=== PATIENT | female | born 1990 | race Caucasian/White ===

== ENCOUNTER 2024-06-29 16:06 | Emergency (ER) | payer SELFPAY ==
[~2024-06-29] VITALS: Ht 160 cm; Wt 84.8 kg
[2024-06-29] MEDS: ondanSETRON 4MG INJ IVP ONE (16:29)
[2024-06-29] MEDS: PANTOPrazole 40 MG/VIAL IVP ONE (16:29)
[2024-06-29] MEDS: LACTATED RINGERS 1000ML 1,000 ML IV ONE (16:30)
--- NOTE | 2024-06-29 16:37 | EKG ---
[facility] Test Date: 2024-06-29 Test Time: 16:34:17 Pat Name: ANSON KERR Department: ED Room: Gender: F [employer]: [facility] : 1990 Requested By: TYESHA HARGROVE Order Number: [id number] Reading MD: Juvencio Wellington Measurements Intervals [place] Rate: 76 P: 33 TX: 144 QRS: 14 QRSD: 100 T: 4 QT: 377 QTc: 424 Interpretive Statements Sinus rhythm No previous ECG available for comparison Electronically Signed On 06-30-2024 13:38:08 CDT by Juvencio Wellington Please click the below link to view image of tracing.
[2024-06-29 16:38] LABS: BASOPHILS # (AUTO) 0.02 K/uL (0.00-0.20); BASOPHILS % (AUTO) 0.3 % (0.0-5.0); EOSINOPHILS # (AUTO) 0.08 K/uL (0.00-0.70); EOSINOPHILS % (AUTO) 1.2 % (0.0-8.0); HEMATOCRIT 37.5 % (36-48); IMMATURE GRANULOCYTE ABSOLUTE 0.02 K/uL (0-1); LYMPHOCYTES # (AUTO) 1.8 K/uL (1.0-4.8); LYMPHOCYTES % (AUTO) 27.2 % (21.0-51.0); MEAN CORPUSCULAR HEMOGLOBIN 30.6 pg (27.0-33.0); MEAN CORPUSCULAR HGB CONC 32.3 g/dL (32.0-36.0); MEAN CORPUSCULAR VOLUME 94.7 fL (79-99); MONOCYTES # (AUTO) 0.4 K/uL (0.1-1.0); MONOCYTES % (AUTO) 5.2 % (3.0-13.0); NEUTROPHILS # (AUTO) 4.4 K/uL (1.8-7.7); NEUTROPHILS % (AUTO) 65.8 % (40.0-77.0); PLATELET COUNT (AUTO) 257 K/uL (130-400); RED BLOOD CELL COUNT(AUTO) 3.96 MIL/uL (4.00-5.50); RED CELL DISTRIBUTION WIDTH 12.6 % (11.0-15.5); WHITE BLOOD COUNT (AUTO) 6.7 K/uL (4.8-10.8)
[2024-06-29 17:12] LABS: CREATININE 0.6 mg/dL (0.5-1.0); POTASSIUM 3.7 mmol/L (3.5-5.1)
[2024-06-29 17:38] LABS: BILIRUBIN,TOTAL 0.3 mg/dL (0.2-1.0)
[2024-06-29 17:39] LABS: ALBUMIN 3.8 g/dL (3.5-5.0); TOTAL PROTEIN, SERUM 7.3 g/dL (6.0-8.3)
--- NOTE | 2024-06-29 17:54 | ERN ---
General Chief Complaint: Abdominal Pain Stated Complaint: LUQ. LLQ PAIN X 2 MONTHS Time Seen by MD: 16:08 Source: patient History of Present Illness Initial Comments PATIENT IS A 33-YEAR-OLD FEMALE COMING IN TO BE EVALUATED FOR LEFT FLANK PAIN. PATIENT STATES THAT THIS HAS BEEN ONGOING FOR A COUPLE OF DAYS AND SHE WAS SEEN AT ANOTHER PLACED DISCHARGE STATES THE PAIN IS STILL PRESENT. SHE STATES HE WAS HERE FOR FURTHER EVALUATION NO FEVER NO CHILLS. SHE ALSO STATES THAT THE PAIN IN HIS SHE WAS IN THE LEFT FLANK Allergies: Coded Allergies: No Known Allergies (Unverified Allergy, Unknown, 06/29/24) Past Medical History Past Medical History: No Pertinent History Medical History Other: RT OVARIAN CYST Past Surgical History: Female( History) LMP: Jun 21, 2024 ROS Dictation CONSTITUTIONAL: NO CHILLS, NO FEVER, NO WEAKNESS, NO DIAPHORESIS, NO MALAISE. HEAD/FACE: NO SIGNS OF TRAUMA. EENT: NO EYE PAIN, NO BLURRED VISION, NO TEARING, NO DOUBLE VISION, NO EAR PAIN, NO EAR DISCHARGE, NO NOSE PAIN, NO NASAL CONGESTION, NO THROAT PAIN, NO THROAT SWELLING, NO MOUTH PAIN. RESPIRATORY: NO COUGH, NO ORTHOPNEA, NO SOB, NO STRIDOR, NO WHEEZING. CARDIOVASCULAR: NO CHEST PAIN, NO EDEMA, NO PALPITATIONS, NO SYNCOPE. GASTROINTESTINAL/ABDOMINAL: ABDOMINAL PAIN, NO CONSTIPATION, NO DIARRHEA, NO NAUSEA, NO VOMITING. GENITOURINARY: NO ABNORMAL DISCHARGE, NO DYSURIA, NO FREQUENT URINATION, NO HEMATURIA. NO COMPLAINTS OF PAIN IN THE GENITALS. MUSCULOSKELETAL: NO BACK PAIN, NO GOUT, NO JOINT PAIN, NO JOINT SWELLING, NO MUSCLE PAIN, NO MUSCLE STIFFNESS, NO NECK PAIN. INTEGUMENTARY: NO CHANGE IN COLOR, NO CHANGE IN HAIR/NAILS, NO DRYNESS, NO LESION, NO LUMPS, NO RASH. NEUROLOGICAL/PSYCH: NO ANXIETY, NOT DEPRESSED, NO EMOTIONAL PROBLEM, NO HEADACHE, NO NUMBNESS, NO PRE-EXISTING DEFICIT, NO HISTORY OF SEIZURES, NO TREMORS, NO WEAKNESS. HEMATOLOGIC/LYMPHATIC: NOT ANEMIC, NO HISTORY OF BLOOD CLOTS, NO APPARENT BLEEDING, NO BRUISING, GLANDS NOT SWOLLEN. ALL SYSTEMS NEGATIVE, EXCEPT NOTED. Physical Exam Physical Exam Dictation VITAL SIGNS: REVIEWED. GENERAL APPEARANCE: ALERT, ORIENTED X3, NO ACUTE DISTRESS, OBESE. HEAD AND FACE: NON-TRAUMATIC. EYES: PERRL, PINK CONJUNCTIVAS, EYELID NO TRAUMA, ANTERIOR CHAMBER CLEAR. EARS: PINNAS INTACT AND NO SIGNS OF TRAUMA OR ERYTHEMA. EAR CANALS CLEAR AND NO DISCHARGE. TMS NO ERYTHEMA. NOSE: NO DISCHARGE, NO BLEEDING. OROPHARYNX: MOUTH NORMAL, TEETH NO CARIES, TONGUE PINK. PHARYNX CLEAR, NO ERYTHEMA. TONSILS NO EXUDATES, NO ABSCESSES NOTED. MUCOUS MEMBRANE MOIST. NECK: SUPPLE, NON-TENDER, NO THYROMEGALY, NO MASSES, NO JVD, NO BRUITS. BREAST: DEFERRED. CHEST: NO TENDERNESS, NO CREPITUS, NO PARADOXICAL MOVEMENT, NO RETRACTIONS. LUNGS: CLEAR, WELL-VENTILATED, SYMMETRIC, NO RALES, NO WHEEZING, NO RHONCHI, NO STRIDOR, GOOD BREATH SOUNDS BILATERALLY. HEART: REGULAR RATE, REGULAR RHYTHM, NO MURMUR, NO GALLOPS. VASCULAR: NO PERIPHERAL EDEMA. ABDOMEN: SOFT, POSITIVE BOWEL SOUNDS, NONDISTENDED, NO GUARDING, LEFT FLANK TENDERNESS, NO REBOUND, NO MASSES NO HEPATOMEGALY, NO SPLENOMEGALY, NO AGUILAR'S SIGN, NO HERNIAS. RECTAL: DEFERRED. GENITAL: DEFERRED. NEUROLOGICAL: NORMAL SPEECH, GROSS MOTOR FUNCTION INTACT, GROSS SENSORY FUNCTION INTACT. MUSCULOSKELETAL: NECK NONTENDER, FULL RANGE OF MOTION, BACK NONTENDER, FULL RANGE OF MOTION. EXTREMITIES: NONTENDER, FULL RANGE OF MOTION. SKIN: COLOR PINK, DRY, NO TURGOR, NO RASH, NO LACERATIONS, NO ABRASIONS, NO CONTUSIONS. LYMPHATICS: DEFERRED. Results Laboratory and Microbiology Lab and Micro Result Laboratory Tests Test 06/29/24 16:28 06/29/24 17:34 White Blood Count 6.7 K/uL (4.8-10.8) Red Blood Count 3.96 MIL/uL (4.00-5.50) L Hemoglobin 12.1 g/dL (12.0-16.0) Hematocrit 37.5 % (36-48) Mean Corpuscular Volume 94.7 fL (79-99) Mean Corpuscular Hemoglobin 30.6 pg (27.0-33.0) Mean Corpuscular Hemoglobin Concent 32.3 g/dL (32.0-36.0) Red Cell Distribution Width 12.6 % (11.0-15.5) Platelet Count 257 K/uL (130-400) Mean Platelet Volume 9.6 fL (7.5-10.5) Immature Granulocyte % (Auto) 0.3 % (0-1) Neutrophils (%) (Auto) 65.8 % (40.0-77.0) Lymphocytes (%) (Auto) 27.2 % (21.0-51.0) Monocytes (%) (Auto) 5.2 % (3.0-13.0) Eosinophils (%) (Auto) 1.2 % (0.0-8.0) Basophils (%) (Auto) 0.3 % (0.0-5.0) Neutrophils # (Auto) 4.4 K/uL (1.8-7.7) Lymphocytes # (Auto) 1.8 K/uL (1.0-4.8) Monocytes # (Auto) 0.4 K/uL (0.1-1.0) Eosinophils # (Auto) 0.08 K/uL (0.00-0.70) Basophils # (Auto) 0.02 K/uL (0.00-0.20) Absolute Immature Granulocyte (auto 0.02 K/uL (0-1) Nucleated Red Blood Cells 0.0 % (0.0-0.19) Sodium Level 138 mmol/L (136-145) Potassium Level 3.7 mmol/L (3.5-5.1) Chloride Level 101 mmol/L (101-111) Carbon Dioxide Level 29 mmol/L (21-32) Blood Urea Nitrogen 10 mg/dL (7-18) Creatinine 0.6 mg/dL (0.5-1.0) Glomerular Filtration Rate Calc 120 mL/min (>90) Random Glucose 100 mg/dL (70-105) Total Calcium 9.0 mg/dL (8.5-10.1) Total Bilirubin 0.3 mg/dL (0.2-1.0) Aspartate Amino Transf (AST/SGOT) 25 U/L (10-37) Alanine Aminotransferase (ALT/SGPT) 20 U/L (12-78) Alkaline Phosphatase 70 U/L (50-136) Total Protein 7.3 g/dL (6.0-8.3) Albumin 3.8 g/dL (3.5-5.0) Human Chorionic Gonadotropin, Quant 0 mIU/mL (0-5) Urine Color LIGHT-YELLOW (YELLOW) Urine Appearance CLOUDY (CLEAR) H Urine pH 7.0 (5.0-8.0) Urine Specific [place] 1.020 (1.001-1.031) Urine Protein NEGATIVE mg/dL (NEGATIVE) Urine Glucose (UA) NEGATIVE mg/dL (NEGATIVE) Urine Ketones NEGATIVE mg/dL (NEGATIVE) Urine Occult Blood MODERATE (NEGATIVE) H Urine Nitrate NEGATIVE (NEGATIVE) Urine Bilirubin NEGATIVE mg/dL (NEGATIVE) Urine Urobilinogen 0.2 mg/dL (0.2-1.0) Urine Leukocyte Esterase NEGATIVE Xi/uL Urine RBC 6-10 /HPF (0-1) H Urine WBC 6-10 /HPF (0-1) H Urine Squamous Epithelial Cells FEW /HPF (0-2) Urine Bacteria RARE /HPF (None Seen) Urine Other Casts 1 /LPF (None Seen) Urine Yeast FEW /HPF (None Seen) Labs Reviewed?: Yes EKG/XRAY/US/CT/MRI CT Scan Comment [address] [address] IMAGING REPORT Signed PATIENT: ANSON KERR MR#: [id number] : 1990 SEX: F AGE: 33 LOCATION: [facility] ORDER 44 STATUS: [facility] REPORT#: [id number] SERVICE 43 REASON: LEFT FLANK PAIN ORDERING PHYSICIAN: TYESHA HARGROVE MD PROCEDURE: ABD PEL WO - CT ABDOMEN/PELVIS W/O CONTRAST CT ABDOMEN WITHOUT CONTRAST. CT PELVIS WITHOUT CONTRAST. INDICATION: Left flank pain TECHNIQUE: Routine transaxial imaging using 5 mm slice thickness through the abdomen and pelvis without the administration of IV contrast. Thin slice reconstructions are also provided. Coronal and sagittal reformatted images acquired for interpretation. CT was performed with one or more of the following dose reduction techniques: Automated exposure control, adjustment of the mA and/or kV according to patient size, or use of iterative reconstruction technique. COMPARISON: None FINDINGS: ON NONCONTRAST IMAGING: ABDOMEN: Heart size is normal. Linear scarring right lung base. No abnormal renal calcifications, hydronephrosis, perinephric inflammation, or proximal hydroureter detected. The liver is normal in size and smooth in contour without biliary duct dilation. The spleen is normal in size and attenuation. The gallbladder appears normal. The pancreas appears normal without pancreatic duct dilation. The adrenal glands appear normal. No significant abdominal, retrocrural or retroperitoneal adenopathy noted. No evidence for intra-abdominal free air or organized fluid collection. No aortic aneurysmal dilation identified. PELVIS: Very trace pelvic free fluid. Massive smoothly-marginated right abdominal cyst measures extends superiorly from near the right ovary, and measures 25.5 cm in the craniocaudal dimension, 16.5 cm in AP dimension, and 21.8 cm in the transverse dimension without any associated fat or calcification. No surrounding inflammatory fat stranding. No abnormal calcifications within the urinary bladder or distal ureters. No evidence for free air or organized pelvic fluid collection. No significant pelvic adenopathy detected. Visualized small and large bowel loops appear unremarkable. Terminal ileum appears unremarkable. The appendix appears normal. Visible osseous structures are intact. IMPRESSION: 25.5 x 16.5 x 21.8 cm right abdominal cyst, perhaps of right ovarian or mesenteric origin, without any surrounding inflammatory changes. DICTATED BY: TANISHA KAISER MD DATE: 06/29/241817 ELECTRONICALLY SIGNED BY: TANISHA KAISER MD DATE: 06/29/241827 [facility] MDM: DIFFERENTIAL DIAGNOSIS: LEFT FLANK PAIN, KIDNEY STONE, DIVERTICULITIS, RIGHT OVARIAN CYST RATIONALE: TESTS CONSIDERED AND ORDERED SECONDARY TO SHARED DECISION MAKING INCLUDE: PREVIOUS OUTSIDE RECORDS REVIEWED: OLD ER VISITS. RISK OF COMPLICATION AND/OR MORBIDITY OR MORTALITY OF PATIENT MANAGEMENT: NONE MEDICATIONS-PER MEDICATION RECONCILIATION NEED FOR HOSPITALIZATION: PATIENT DOES NOT MEET CRITERIA FOR HOSPITALIZATION. NEED FOR EMERGENCY MAJOR/MINOR SURGERY: NO THERE ARE NO SOCIAL CONCERNS WITH THIS PATIENT. PRESCRIPTION DRUG MANAGEMENT PRESCRIPTIONS WILL INCLUDE SYMPTOMATIC CARE PATIENT'S PRIOR EXTERNAL MEDICAL RECORDS FROM OTHER ER VISITS WERE REVIEWED BY ME INDICATED. PRIOR TESTING AND RESULTS FROM PREVIOUS VISITS WERE REVIEWED. PRIOR TESTS WERE TAKEN INTO ACCOUNT WITH MEDICAL DECISION MAKING AND RESOURCE UTILIZATION, INDEPENDENT HISTORIAN/HISTORIANS WERE USED TO OBTAIN COMPLETE MEDICAL HISTORY. I INDEPENDENTLY INTERPRETED THE TEST THAT WERE PERFORMED, RESULTS WERE REVIEWED BY ME AND CONSIDERED FINDINGS ON RADIOLOGY IF ORDERED. MEDICAL MANAGEMENT AND EXAMINATION INTERPRETATION DISCUSSIONS WERE HAD BY ME WITH OTHER QUALIFIED HEALTHCARE PROFESSIONALS INDICATED FOR THE PATIENT'S CARE. 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 ED Course Orders Procedure Category Date Status Time Cbc With Differential LAB 06/29/24 Complete 16:17 Comprehensive LAB 06/29/24 Complete Metabolic Panel 16:17 Hcg,Quantitative LAB 06/29/24 Complete 16:17 Urinalysis Profile LAB 06/29/24 Complete 16:17 12 Lead Ekg Tracing- EKG 06/29/24 Complete Technical 16:17 Lactated Ringers PHA 06/29/24 Complete 1000ml (Lactated 16:30 Ondansetron 4mg Inj PHA 06/29/24 Complete (Zofran 4mg Inj) 16:30 Pantoprazole 40mg Inj PHA 06/29/24 Complete (Protonix 40mg Inj 16:30 Ct Abdomen/Pelvis W/O CT 06/29/24 Resulted Contrast 17:44 Culture Urine FERNANDO 06/29/24 In Process 18:27 Us Pelvic Non-Ob US 06/29/24 Resulted Limited 18:39 Morphine 4mg Syg PHA 06/29/24 Complete (Morphine 4mg Syg) 19:30 Current Medications Medications (Trade) Dose Ordered Sig/Birdie Route PRN Reason Start Time Stop Time Status Last Admin Dose Admin Lactated Ringer's 1,000 ml @ 0 mls/hr ONCE ONCE IV 06/29/24 16:30 06/29/24 16:31 DC 06/29/24 16:30 Morphine Sulfate (morPHINE 4MG SYG) 4 mg ONCE ONCE IV 06/29/24 19:30 06/29/24 19:31 DC 06/29/24 19:43 Ondansetron HCl (zoFRAN 4MG INJ) 4 mg ONCE ONCE IVP 06/29/24 16:30 06/29/24 16:31 DC 06/29/24 16:29 Pantoprazole Sodium (PROTonix 40MG INJ) 40 mg ONCE ONCE IVP 06/29/24 16:30 06/29/24 16:31 DC 06/29/24 16:29 Vital Signs Date Time Temp Pulse Resp B/P (MAP) Pulse Ox O2 Delivery O2 Flow Rate FiO2 06/29/24 20:30 98.4 70 18 130/77 99 Room Air* 0 21 06/29/24 18:00 81 18 144/72 98 Room Air* 0 21 06/29/24 16:08 98.4 82 16 164/105 99 Nasal Cannula 0 DX & DISP Disposition: Transfer Departure Impression: Primary Impression: Right ovarian cyst Condition: Stable Referrals: SELF,REFERRAL (PCP) TYESHA HARGROVE MD Jun 29, 2024 17:54 AMANDA VELAZQUEZ MD Jun 29, 2024 23:34
[2024-06-29 18:18] LABS: ADD UA MICROSCOPIC YES; APPEARANCE,URINE CLOUDY (CLEAR); BILIRUBIN,URINE NEGATIVE (NEGATIVE); COLOR,URINE LIGHT-YELLOW (YELLOW); GLUCOSE, URINE (UA) NEGATIVE (NEGATIVE); KETONES,URINE NEGATIVE (NEGATIVE); LEUKOCYTE ESTERASE ,URINE NEGATIVE Leu/uL (NEGATIVE); NITRATE,URINE NEGATIVE (NEGATIVE); OCCULT BLOOD,URINE MODERATE (NEGATIVE); PROTEIN,URINE NEGATIVE (NEGATIVE); UROBILINOGEN,URINE 0.2 mg/dL (0.2-1.0)
[2024-06-29 18:26] LABS: BACTERIA,URINE RARE /HPF (None Seen); MUCUS,URINE RARE LPF (None Seen); OTHER CASTS, URINE 1 /LPF (None Seen); SQUAMOUS EPITHELIAL CELL,UR FEW /HPF (0-2); YEAST,URINE BUDDING FEW /HPF (None Seen)
--- NOTE | 2024-06-29 18:28 | HMCIMG ---
CT ABDOMEN WITHOUT CONTRAST. CT PELVIS WITHOUT CONTRAST. INDICATION: Left flank pain TECHNIQUE: Routine transaxial imaging using 5 mm slice thickness through the abdomen and pelvis without the administration of IV contrast. Thin slice reconstructions are also provided. Coronal and sagittal reformatted images acquired for interpretation. CT was performed with one or more of the following dose reduction techniques: Automated exposure control, adjustment of the mA and/or kV according to patient size, or use of iterative reconstruction technique. COMPARISON: None FINDINGS: ON NONCONTRAST IMAGING: ABDOMEN: Heart size is normal. Linear scarring right lung base. No abnormal renal calcifications, hydronephrosis, perinephric inflammation, or proximal hydroureter detected. The liver is normal in size and smooth in contour without biliary duct dilation. The spleen is normal in size and attenuation. The gallbladder appears normal. The pancreas appears normal without pancreatic duct dilation. The adrenal glands appear normal. No significant abdominal, retrocrural or retroperitoneal adenopathy noted. No evidence for intra-abdominal free air or organized fluid collection. No aortic aneurysmal dilation identified. PELVIS: Very trace pelvic free fluid. Massive smoothly-marginated right abdominal cyst measures extends superiorly from near the right ovary, and measures 25.5 cm in the craniocaudal dimension, 16.5 cm in AP dimension, and 21.8 cm in the transverse dimension without any associated fat or calcification. No surrounding inflammatory fat stranding. No abnormal calcifications within the urinary bladder or distal ureters. No evidence for free air or organized pelvic fluid collection. No significant pelvic adenopathy detected. Visualized small and large bowel loops appear unremarkable. Terminal ileum appears unremarkable. The appendix appears normal. Visible osseous structures are intact. IMPRESSION: 25.5 x 16.5 x 21.8 cm right abdominal cyst, perhaps of right ovarian or mesenteric origin, without any surrounding inflammatory changes.
[2024-06-29] MEDS: morPHINE 4 MG SYG IV ONE (19:43)
--- NOTE | 2024-06-29 20:45 | HMCIMG ---
US PELVIC NON-OB LIMITED HISTORY: No additional history given. COMPARISON: None TECHNIQUE: Transabdominal pelvic ultrasound study was performed. FINDINGS: The uterus measures 10.8 x 5.3 x 5.2 cm. The right ovary measures 4.3 x 3.2 x 3.8 cm. The left ovary measures 2.8 x 1.6 x 2.6 cm. Multiple right ovarian cysts are seen with the largest measuring 2.6 x 2.1 cm. There is cystic mass in the mid abdominal pelvic region measuring 20 x 16 x 21 cm. Endometrial thickness is 6 mm. Small hypoechoic nodule is seen in the uterus measuring 1.5 x 1.5 x 1.4 cm and may be related to a fibroid. No free fluid is seen in the cul-de-sac. IMPRESSION: 1. Cystic mass in the mid abdominopelvic region measuring 20 x 16 x 21 cm with cystic neoplasm. Fibroid uterus.
[2024-06-30] MEDS: morPHINE 4 MG SYG IVP ONE (00:03)
--- NOTE | 2024-06-30 00:33 | NUR ---
EMS CALLED AT THIS TIME
--- NOTE | 2024-06-30 00:43 | NUR ---
REPORT GIVEN TO DARRICK REHMAN [place] [facility] [place] [phone]
[2024-06-30 00:50] VITALS: BP 138/90; PULSE 80; RESP 18; TEMP 98.2; O2SAT 100
== END 2024-06-30 00:58 | disposition short-term general hospital (02) ==
LOC: EDH 16:06
DX: N83.201 Unspecified ovarian cyst, right side (principal); R10.2 Pelvic and perineal pain
CPT/HCPCS: 99285; 74176; 96374; 76857; 96375; 96361; 80053; 84702; 85025; 87086; 81001; 36415; 96376; 93005; J7120; J2405; J2270 ×2; J2470